=== PATIENT | male | born 1995 | race Caucasian/White ===

== ENCOUNTER 2020-01-20 17:17 | Emergency (ER) | payer BC ==
[~2020-01-20] VITALS: Ht 177.8 cm; Wt 86.2 kg
[~2020-01-20 17:17] MED LIST: [UNRECOGNIZED DRUG - REMARK]
[2020-01-20] MEDS ORDERED: BUPROPION XL300 MG PO (17:32)
[2020-01-20] MEDS ORDERED: REMERON15 M2 PO (17:33)
[2020-01-20] MEDS ORDERED: KEFLEX500 M1 PO (18:33)
[2020-01-20 18:59] VITALS: BP 128/85
== END 2020-01-20 19:00 | disposition home or self-care (01) ==
LOC: M.ERS 17:17
DX: S01.01XA Laceration without foreign body of scalp, initial encounter (principal); Z79.899 Other long term (current) drug therapy; W22.8XXA Striking against or struck by other objects, initial encounter; Y93.89 Activity, other specified; Y92.89 Other specified places as the place of occurrence of the external cause; Y99.8 Other external cause status